=== PATIENT | female | born 1975 | race Caucasian/White ===

== ENCOUNTER 2025-03-12 19:58 | Emergency (ER) | payer OTHER, SELFPAY ==
--- OUTSIDE RECORDS SUMMARY | 2025-03-11 19:22 | XMS_ITS | Continuity of Care Document ---
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 Role Phone NO FAMILY, PHYSICIAN Primary Care Provider Elisabethva Niki Hathaway APRN Attending Provider Care Teams Visit Care Team Team Status: Inactive Member Role/Relationship Status Dates PHYSICIAN NO FAMILY Primary Care Provider Active Start: March 11, 2025 End: March 11, 2025Carine Garciastenstan ProviderActiveStart: March 11, 2025 End: March 11, 2025 Patient Care Team Team Status: Inactive Member Role/Relationship Status Dates Niki Rasmussen APRN Attending Provider Active Start: March 11, 2025 End: March 11, 2025 Chief Complaint and Reason for Visit Chief Complaint Admit Date frequency to urinate March 11, 2025 4:23pm Reason for Visit Admit Date Acute UTI March 11, 2025 4 :23pm Allergies, Adverse Reactions, Alerts Allergen Type Severity Reaction Last Updated Verified Status No Known Allergies Allergy Unknown March 11, 2025 4:24pmYesActive Social History Smoking Status Status Start Date End Date Date of Observa tion Ex-smoker (finding) March 11, 2025 4:30pm Observation Status Observation Response Date of Response Legal Sex Female (finding) Sex Assigned At BirthFemaleFebruary 1975 Family History Relationship Condition Age at Onset Recorded Date/T frank father Hypertension Unknown Diabetes mellitusUnknown Problems Active Problems Problem Diagnosis/Recorded Date Onset Date Stat us Anxiety March 11, 2025 4:25pm Unknown Ac tive Night sweats March 11, 2025 4:30pm Unknown Ac tive Acute UTI March 11, 2025 4:46pm Unknown Ac tive Medications Medication Status Dose Units Route Directions Qty Days Refills S tart Date Stop Date End Date Reason(s) Instructions Adherence Multivitamin tablet Active 1 TAB PO Daily March 11, 2025 12:00amUnknownBiotin 5 mg iofxysgNtbcfm7NAZWIfdhaDjdhhkiy 2024 12:00amUnknownBlack Cohosh 540 mg mspeijmNvtpxe98HPJIYtxifCabfolhq 2024 12:00amUnknownSertraline 50 mg qrubkvLnighw08DVMMBbiyfOtdaqkkq 2024 12:00amUnknownCholecalciferol (Vitamin D3) 10 mcg (400 unit) capsuleActive 10MCGPODailyDecember 2024 12:00amUnknownPhentermine 37.5 mg tabletActive 37.5MGPODailyDecember 2024 12:00amUnknownPhenazopyridine (Pyridium) 200 mg phguzyQaibvx792RXSKKacxc times daily as needed for rxeu054Phvnetpi 2nd, 2025 12:00amUnknownNitrofurantoin Monohyd/M-Cryst (Macrobid) 100 mg hxideqdAdraik871 MGPOEvery 12 jtfme8569Nguirgra 2nd, 2025 12:00ammust administer with a meal/food Unknown Procedures Procedure Date Performed Status Urine Culture March 11, 2025 active Relevant Diagnostic Tests and/or Laboratory Data Laboratory Results Test Collection Date/Time Result Date/Time Result Interpretation Reference Range Result Comment Performing Site Urine Color March 11, 2025 4:39pm March 11, 2025 4 :40pm yellow Urine AppearanceDe2024 4:39pmDecemb2024 4:40pmclearUrine Glucose (UA)March 11, 2025 4:39pmDecember 2024 4:40pmnegativeUrine BilirubinDece2024 4:39pmDecemb2024 4:40pmnegativeUrine Ketones March 11, 2025 4:39pmDecemb2024 4:40pmnegativeUrine Specific [place] March 11, 2025 4:39pmDecemb2024 4:40pm1.010Urine Occult Blood March 11, 2025 4:39pmDecemb2024 4:40pmmoderateUrine pHDece2024 4:39pmDecember 2024 4:40pm6.0Urine ProteinDeceer 2024 4:39pm March 11, 2025 4:40pmnegativeUrine UrobilinogenDece2024 4:39pm March 11, 2025 4:40pm0.2EU/dLUrine NitriteDece2024 4:39pmDecember 2024 4:40pmPositiveUrine Leukocyte EsteraseDece2024 4:39pm March 11, 2025 4:40pmsmall Vital Signs Vital Reading Result Reference Range Collection Date/Time Height 66 [in_i] March 11, 2025 4:17qhScgbcr33.29 kgMarch 11, 2025 4:25pmBody Temperature 97.9 [degF]97.6-99.0March 11, 2025 4:25pmHeart Rate84 /kqi74-914WcbkjvwmMarch 11, 2025 4:25pmRespiratory rate16 /uzx20-67WjgbzttdMarch 11, 2025 4:25pmOxygen saturation by Pulse wnvrebjd93 %95-100March 11, 2025 4:25pmBP Yyhngbtv966 mm[Hg]100-140March 11, 2025 4:25pmBP Xfaarttqm01 mm[Hg]60-100Dece2024 4:25pmBMI (Body Mass Index)26.8 kg/d6EdcnviwwMarch 11, 2025 4:25pm Advance Directives Advance Directive Response Recorded Date/ Time Advance Directives No July 01 023 11:47am Insurance Providers Guarantor Jana Scruggs Address [address] [place] [id number] Info.Home Phone: Coverage Status Update:2025 Payer Group Member ID Coverage Type Subscriber Relationship to Subscriber Effective Date Expiration Date MM [id number] L Shafer Id: [id number] [address] [place] [id number] Home Phone: Email: [email or web address] Encounters Encounter Location(s) Arrival/Admit Date Discharge/Departure Date Discharge/Departure Disposition Provider(s) Departed Physician/ Provider Office Visit -[facility] Cm March 11, 2025 4:23pm March 11, 2025 4:44pm Discharged to home care or self care (routine discharge) Albert Sol APRN Departed Referred -Lab [facility] March 11, 2025 4:30pm March 11, 2025 4:31pm Discharged to home care or self care (routine discharge) Albert Sol APRN Recent Diagnosis Onset Date Admit Date Acute UTI Unknown March 11 4:23pm Assessments Diagnosis Onset Date Resolution Status Admit Date Acute UTI acuteSc2024 4:23pm Plan of Treatment Author [facility] 4:46pm UA with small leukocytes, mod blood, + nitrite. Will treat with macrobid. As needed Pyridium Rx sent for symptomatic treatment. Push fluids. We will culture urine and notify of results in 2 to 4 days. Advised to follow-up with PCP if symptoms or not gradually improving over the next 3 to 4 days. Patient verbalized understanding of treatment plan. Future Tests Future scheduled test information is unavailable Pending Tests Test Name Ordered Date Scheduled Date Urine Culture March 11, 2025 4:30pm Future Visits Future appointment information is unavailable Future Procedures Procedure Name Ordered Date Scheduled Date Urine Culture March 11, 2025 4:32pm [facility] er 2024 4:30pm Future Medications Future medication information is unavailable Patient Instructions Patient instructions are unavailable
[2025-03-12 20:07] VITALS: BP 122/68; PULSE 91; TEMP 36.7; O2SAT 99; BMI 26.6
--- NOTE | 2025-03-12 20:49 | CT_ITS ---
The [address] [address] Patient Name: ACOSTA BRUNO MRN: [id number] date: 1975 Sex: F Assigned Patient Location: ER Current Patient Location: ED.MAIN Accession/Order Number: [id number] Exam Date: 03/12/2025 21:17 Report Date: 03/12/2025 22:50 At the request of: YO KUMAR MD Procedure: CT abdomen pelvis wo con CT ABDOMEN AND PELVIS WITHOUT INTRAVENOUS CONTRAST: CLINICAL HISTORY: Left flank pain, UTI sx COMPARISON: None TECHNIQUE: Spiral images were obtained through the abdomen and pelvis without intravenous contrast. This CT exam was performed using one or more following dose reduction techniques: Automated exposure control, adjustment of the mA and/or kV according to patient size, or use of iterative reconstruction technique. FINDINGS: Lung Bases: [No focal opacity ] Organs:Liver, gallbladder, spleen, adrenals, kidneys, and pancreas are unremarkable.[ GI: Mild to moderate retained stool throughout the colon. No bowel obstruction. Appendix is normal.[ Pelvis:[Uterus unremarkable. No adnexal mass identified. Bladder is mostly decompressed with wall thickening. Question slight haziness of the adjacent perivesical fat..] Peritoneum/Retroperitoneum:Negative free air or free fluid. No bulky adenopathy. Aorta normal in caliber. Tiny fat-containing umbilical hernia.[ Abd wall/Bones:No suspicious osseous lesion.[ CT/CT abdomen pelvis wo con IMPRESSION: Bladder wall thickening surrounding haziness may represent under distention, correlate with urinalysis findings. Otherwise negative for nephrolithiasis or obstructive uropathy. Minor colonic diverticulosis. Impression dictated by: Levar Freeman M.D. 03/12/2025 10:50 PM Dictation Location: [place] [id number] Electronically authenticated by: [id number] Y Date: 03/12/2025 22:50
[2025-03-12] MEDS: 0.9 % SODIUM CHLORIDE 1,000 ML 1000 ML IV (21:06)
[2025-03-12] MEDS: KETOROLAC TROMETHAMINE 30 MG/ML VIAL IVP (21:07)
[2025-03-12 21:12] LABS: Hematocrit 42.6 % (36.0-48.0); Hemoglobin 14.3 g/dL (12.0-16.0); Immature Granulocytes Abs Auto 0.02 10^3/uL (0.00-0.03); Immature Granulocytes Pct Auto 0.3 % (0.0-0.5); Lymphocytes Absolute Auto 1.4 10^3/uL (1.2-3.8); Mean Corpuscular HGB Conc 33.6 g/dL (29.9-35.2); Mean Corpuscular Hemoglobin 29.7 pg (26.7-34.0); Mean Corpuscular Volume 88.6 fL (81.0-99.0); Platelet Count 219 10^3/uL (150-450); Red Blood Count 4.81 10^6/uL (4.20-5.40); White Blood Count 7.7 10^3/uL (4.0-11.0)
[2025-03-12 21:13] LABS: Glucose Urine UA NEGATIVE (NEGATIVE)
[2025-03-12 21:19] LABS: Urine Culture Indicated YES-FRMC
--- NOTE | 2025-03-12 21:19 | ED.FEMALEGU1 ---
HPI - Female Genitourinary General Chief complaint: Urogenital-Female Stated complaint: BLADDER INFECTION YESTERDAY/ NOW VOMITING Time Seen by Provider: 03/12/25 20:08 Source: patient Mode of arrival: walk-in History of Present Illness HPI Narrative: This 49-year-old female presents for evaluation of urinary symptoms since Monday. The patient states she woke up yesterday morning with urinary symptoms with mild dysuria. She states she took an Azo and went to work. She only worked part of a day and then went home because she was not feeling well. Since that time she has developed more severe urinary symptoms with frequency and urgency. She has not had any hematuria. She has also developed nausea and had 3 episodes of vomiting throughout the day and left-sided flank pain. She has not had a fever. She states she has vomited 3 times and had diarrhea. She was seen at urgent care and prescribed Macrobid and Pyridium. Related Data Home Medications ?Medication ?Instructions ?Recorded ?Confirmed phenazopyridine 100 mg tablet 100 mg PO TID 03/12/25 03/12/25 (Pyridium) phentermine 37.5 mg tablet mg 03/12/25 sertraline 100 mg tablet (Zoloft) 100 mg PO DAILY 03/12/25 03/12/25 Allergies Allergy/AdvReac Type Severity Reaction Status Date / Time No Known Drug Allergies Allergy Verified 03/12/25 20:16 Review of Systems ROS Status of ROS 10 or more systems reviewed and unremarkable except as noted in history and below PFSH PFSH Social History Little interest or pleasure in doing things: not at all Feeling down, depressed, or hopeless: not at all Exam Narrative Exam Narrative: Vital signs and Nursing Notes reviewed: Patient is afebrile with a normal pulse, normal respiratory rate, she is not hypoxic with pulse ox of 99% on room air General: Awake, alert, oriented, no acute distress, lying comfortably on the stretcher HEENT: Normocephalic atraumatic, mucous membranes are moist and pink, eyes are clear, normal conjunctiva, vision is grossly intact, posterior pharynx is normal in appearance Neck: Supple, no meningeal signs Chest: Lungs are clear to auscultation with good air entry, there is no wheezing rhonchi or rales appreciated no accessory muscle use, patient is speaking in complete sentences-no chest wall tenderness to palpation CVS: Regular rate and rhythm S1-S2, no murmurs rubs or gallops, pulses are brisk and equal bilaterally ABD: Soft, nondistended, nontender, mild tenderness in the left lower quadrant and over the urinary bladder without rebound guarding rigidity, no reproducible flank tenderness noted, no skin rash in the left flank Extremities: Moving all extremities, no lower extremity tenderness or swelling noted, negative Homans' sign, pulses are brisk and equal bilaterally Skin: Normal in appearance without rash,pallor, petechiae or purpura Neuro: No focal deficits Constitutional Vital Signs, click to edit/add: Last Vital Signs Temp 98.1 F 03/12/25 20:07 Pulse 78 03/12/25 23:26 Resp 16 03/12/25 23:26 BP 138/82 03/12/25 23:26 Pulse Ox 99 03/12/25 23:26 O2 Del Method Room Air 03/12/25 23:26 Course Vital Signs Vital signs: Vital Signs Temperature 98.1 F 03/12/25 20:07 Pulse Rate 91 H 03/12/25 20:07 Respiratory Rate 20 03/12/25 20:07 Blood Pressure 122/68 03/12/25 20:07 Pulse Oximetry 99 03/12/25 20:07 Oxygen Delivery Method Room Air 03/12/25 20:07 Temperature 98.1 F 03/12/25 20:07 Pulse Rate 78 03/12/25 23:26 Respiratory Rate 16 03/12/25 23:26 Blood Pressure 138/82 03/12/25 23:26 Pulse Oximetry 99 03/12/25 23:26 Oxygen Delivery Method Room Air 03/12/25 23:26 MDM - Female Genitourinary MDM Narrative Medical decision making narrative: This 49-year-old female presents for evaluation of urinary tract symptoms that started yesterday-she was seen in urgent care and prescribed Macrobid and Pyridium. Today her symptoms increased to include left flank pain with nausea vomiting and diarrhea earlier in the day. She states she had some chills but has not had a fever. Upon arrival she was not actively vomiting. Her mucous membranes are moist, her abdomen is soft with no flank tenderness. An IV was placed and she was medicated with IV fluids, Zofran and Toradol. She has a normal white count and stable hemoglobin. Electrolytes are normal. Urine is positive for nitrites, leukocyte esterase and 10-20 white blood cells per high-power field. Culture is pending at this time. She was given 1 g of IV Rocephin for the UTI. CT scan of the abdomen pelvis was ordered to rule out obstructive uropathy or pyelonephritis. It does show some mild stranding around the bladder but otherwise no kidney stones or obstructive uropathy was noted. The patient was given a copy of her CT scan and was discharged home with a prescription for Keflex and Zofran. I encouraged her to drink plenty of fluids and follow-up closely with her family physician, return to the emergency department for worsening symptoms, inability to tolerate her medications or any concerns. Medical Records Attestation: I reviewed the patient's medical records. Lab Data Attestation: I reviewed the patient's lab results. Labs: Lab Results 03/12/25 Range/Units 21:04 WBC 7.7 (4.0-11.0) 10^3/uL RBC 4.81 (4.20-5.40) 10^6/uL Hgb 14.3 (12.0-16.0) g/dL Hct 42.6 (36.0-48.0) % MCV 88.6 (81.0-99.0) fL MCH 29.7 (26.7-34.0) pg MCHC 33.6 (29.9-35.2) g/dL RDW 12.4 (11.0-15.0) % Plt Count 219 (150-450) 10^3/uL MPV 10.4 (9.5-13.5) fL Neut % (Auto) 76.4 H (43.0-75.0) % Lymph % (Auto) 17.9 L (20.5-60.0) % [place] % (Auto) 4.4 (1.7-12.0) % Eos % (Auto) 0.4 L (0.9-7.0) % Baso % (Auto) 0.6 (0.2-2.0) % Neut # (Auto) 5.9 (1.4-6.5) 10^3/uL Lymph # (Auto) 1.4 (1.2-3.8) 10^3/uL [place] # (Auto) 0.3 (0.3-0.8) 10^3/uL Eos # (Auto) 0.0 (0.0-0.7) 10^3/uL Baso # (Auto) 0.1 (0.0-0.1) 10^3/uL Abs Immat Gran (auto) 0.02 (0.00-0.03) 10^3/uL Imm/Tot Granulo (auto) 0.3 (0.0-0.5) % Sodium 141 (136-145) mmol/L Potassium 3.8 (3.5-5.1) mmol/L Chloride 104 (98-107) mmol/L Carbon Dioxide 30.7 (21.0-32.0) mmol/L Anion Gap 10.1 BUN 10.0 (7.0-18.0) mg/dL Creatinine 0.75 (0.55-1.02) mg/dL Est GFR ( Amer) >60 (>=60 mL/min/1.73m^2) Est GFR (Non-Af Amer) >60 (>=60 mL/min/1.73m^2) BUN/Creatinine Ratio 13.3 Glucose 100 (74-106) mg/dL Calcium 9.7 (8.5-10.1) mg/dL Total Bilirubin 0.5 (0.2-1.0) mg/dL AST 12 L (15-37) U/L ALT 23 (14-59) U/L Alkaline Phosphatase 75 (46-116) U/L Total Protein 7.8 (6.4-8.2) g/dL Albumin 4.2 (3.4-5.0) g/dL Globulin 3.6 g/dL Albumin/Globulin Ratio 1.2 Urine Color Dk. orange (YELLOW) Urine Clarity Sl cloudy (CLEAR) Urine pH 7.5 (5.0-9.0) Ur Specific [place] 1.015 (1.005-1.025) Urine Protein Negative (NEG/TRACE) mg/dL Urine Glucose (UA) Negative (NEGATIVE) mg/dL Urine Ketones 15 A (NEGATIVE) mg/dL Urine Occult Blood Trace-i (NEGATIVE) Urine Nitrite Positive A (NEGATIVE) Urine Bilirubin Negative (NEGATIVE) Urine Urobilinogen 0.2 (0.2-1.0) EU/dL Ur Leukocyte Esterase Small A (NEGATIVE) Urine RBC 0-2 (0-2) #/HPF Urine WBC 10-20 A (NONE SEEN) #/HPF Ur Squamous Epith Cells Rare (NONE/RARE) #/LPF Urine Crystals None seen (None Seen) #/HPF Urine Bacteria Small A (NONE SEEN) #/HPF Urine Casts None seen (NONE SEEN) #/LPF Urine Mucus Moderate A (NONE SEEN) Ur Culture Indicated? Yes-[facility] [place] Urine HCG, Qual Negative (NEGATIVE) Imaging Data CT scan - abdomen: Radiologist's impression: ITS Impressions Abdomen/Pelvis CT 03/12/25 20:49 IMPRESSION: Bladder wall thickening surrounding haziness may represent under distention, correlate with urinalysis findings. Otherwise negative for nephrolithiasis or obstructive uropathy. Minor colonic diverticulosis. Impression dictated by: Levar Freeman M.D. 03/12/2025 10:50 PM [facility]ation [facility] Electronically authenticated by: [id number] Y Date: 03/12/2025 22:50 Discharge Plan Discharge Chief Complaint: Urogenital-Female Clinical Impression: Urinary tract infection Patient Disposition: Home, Self-Care Time of Disposition Decision: 23:09 Condition: Good Prescriptions / Home Meds: No Action phentermine 37.5 mg tablet sertraline [Zoloft] 100 mg tablet 100 mg PO DAILY phenazopyridine [Pyridium] 100 mg tablet 100 mg PO TID Print Language: Ukrainian Instructions: Urinary Tract Infection in Women (DC) Referrals: SIENNA QUINTANILLA [Primary Care Provider, Family Practice] - 1 week Discharge Date/Time: 03/12/25 23:28
[2025-03-12 21:24] LABS: Crystals Seen? None Seen #/HPF (None Seen)
[2025-03-12 21:25] LABS: Cast Seen? NONE SEEN #/LPF (NONE SEEN)
[2025-03-12 21:28] LABS: Alanine Aminotransferase 23 U/L (14-59); Albumin Globulin Ratio 1.2; Albumin Level 4.2 g/dL (3.4-5.0); Alkaline Phosphatase 75 U/L (46-116); Anion Gap 10.1; Aspartate Amino Transferase 12 U/L (15-37); Blood Urea Nitrogen 10.0 mg/dL (7.0-18.0); Calcium 9.7 mg/dL (8.5-10.1); Carbon Dioxide 30.7 mmol/L (21.0-32.0); Chloride 104 mmol/L (98-107); Estimated GFR (African America >60 (>=60 mL/min/1.73m^2); Estimated GFR (Non-African Ame >60 (>=60 mL/min/1.73m^2); Globulin 3.6 g/dL; Glucose 100 mg/dL (74-106); Potassium 3.8 mmol/L (3.5-5.1); Sodium 141 mmol/L (136-145); Total Protein 7.8 g/dL (6.4-8.2)
[2025-03-12 21:32] LABS: HCG Qualitative Urine* NEGATIVE (NEGATIVE)
--- OUTSIDE RECORDS SUMMARY | 2025-03-12 21:48 | XMS_ITS | Clinical Summary ---
Author Organization [facility] Address [address], [address] [place] [address] Care Team Providers Care Automotive Technician Instructor Name Role Phone Gabi Mosquera PA-C Primary Care Provider [phone] Medications MedicationSigDispense QuantityRefillsLast FilledStart DateEnd DateStatus sertraline (ZOLOFT) 50 MG tablet Take 1.5 tablets by mouth nightlyActive Probiotic Product (PROBIOTIC-10 PO) Take by mouth dailyActive diazePAM (VALIUM) 2 MG tablet Take 1 tablet by mouth every 6 hours as needed for Anxiety. Max Daily Amount: 8 mgActive Active Problems No known active problems Encounters DateTypeDepartmentCare SjynWtsbrwqsvzp32/27/2025Telephone [facility] Mammography [address] [place], [place] [id number] Radiologist, Vinny Ramirez 12/25/2024Results Follow-Up [facility] Obstetrics and Gynecology [address] [place] [address] Dr [place]ON [place] [id number] Roxanna Lui, ANNA - MEGA 12/18/2024 10:08 AM EDT - 12/18/2024 11:59 PM EDTHospital Encounter [facility] [address] [place], [place] [id number] Screening for malignant neoplasm of cervix Discharge Disposition: Home or Self Care12/18/2024 9:00 AM EDTOffice Visit [facility] OBSTETRICS & GYNECOLOGY Part [address] [place] [address] Roxanna Lui, ANNA - MEGA Encounter for annual routine gynecological examination (Primary Dx); Screening mammogram, encounter for; Screening for malignant neoplasm of cervixfrom Last 3 Months Family History Medical HistoryRelationNameCommentsDeep Vein ThrombosisFatherDiabetesFatherHigh CholesterolFatherHypertensionFatherPulmonary EmbolismFatherProstate Cancer Maternal GrandfatherOtherMaternal GrandmotherpacemakerBreast CancerMaternal Great GrandmotherDeep Vein ThrombosisMotherAlzheimer's DiseasePaternal GrandmotherRelationNameStatusCommentsBrotherAliveFatherDeceasedMaternal GrandfatherAliveMaternal GrandmotherAliveMaternal Great GrandmotherDeceased MotherAlivePaternal GrandfatherDeceasedPaternal GrandmotherDeceased Social History Tobacco UseTypesPacks/DayYears UsedDateSmoking Tobacco: FormerCigarettesQuit: 2005Smokeless Tobacco: Never Tobacco Cessation:Counseling Given: Not Answered Alcohol UseStandard Drinks/WeekCommentsNot Currently0 (1 standard drink = 0.6 oz pure alcohol)rarelyOverall Financial Resource Strain (CARDIA)AnswerDate Recorded How hard is it for you to pay for the very basics like food, housing, medical care, and heating?Not hard at all12/13/2023HQ-2AnswerDate RecordedPHQ-9 Total Lerqg757PRAPARE - TransportationAnswerDate RecordedLack of Transportation (Medical)Not on file12/13/2023In the past 12 months, has lack of transportation kept you from meetings, work, or from getting things needed for daily living?No12/13/2023Housing Stability Vital SignAnswerDate RecordedIn the last 12 months, was there a time when you were not able to pay the mortgage or rent on time?No12/18/2024In the past 12 months, how many times have you moved where you were living?t any time in the past 12 months, were you homeless or living in a half-way (including now)?12/18/2024Hunger Vital Sign AnswerDate RecordedWithin the past 12 months, you worried that your food would run out before you got the money to buymore.Never true12/18/2024Within the past 12 months, the food you bought just didn't last and you didn't have money to get more.Never true12/18/2024PRAPARE - TransportationAnswerDate RecordedIn the past 12 months, has lack of transportation kept you from medical appointments or from getting medications?No12/18/2024In the past 12 months, has lack of transportation kept you from meetings, work, or from getting things needed for daily living?No12/18/2024HC UtilitiesAnswerDate RecordedIn the past 12 months has the electric, gas, oil, or water company threatened to shut off services in your home?No12/18/2024Interpersonal Safety Domain Source: IP Abuse Screening AnswerDate RecordedRead-Only, Retired: Physical RdzpnOjuyay42/26/2023Read-Only, Retired: Verbal ZabvtAxdcmj67/26/2023Read-Only, Retired: Emotional abuseDenies 11/02/2022Read-Only, Retired: Financial VvrkeIwiavo94/26/2023Read-Only, Retired: Sexual tasluQzljud69/26/2023CommentsNoSex and Gender InformationValue Date RecordedSex Assigned at BirthNot on fileLegal VyzZoasfi91/17/2021 12:25 PM EDTGender IdentityNot on fileSexual OrientationNot on file Last Filed Vital Signs Vital SignReadingTime TakenCommentsBlood Hrfcbjis665/8209 9:01 AM EDT Vzrlx807511/02/2022 4:41 PM TOMJzsqeogyikl34.4 ??C (97.5 ??F)11/02/2022 4:41 PM EDTRespiratory Zitc098704/20/2021 5:00 PM ESTOxygen Lhuwjserwo111%11/02/2022 4:41 PM EDTInhaled Oxygen Concentration--Beghgc95.8 kg (162 lb 12.8 oz)12/18/2024 9:01 AM FVBQykxoh957.6 cm (5' 6 )12/18/2024 9:01 AM EDTBody Mass Index26.28 12/18/2024 9:01 AM EDT Plan of Treatment DateTypeDepartmentCare Team (Latest Contact Info)Oszubnrddej97/24/2026 8:15 AM EDTOffice Visit [facility] OBST[facility]OLOGY Part of [address] [place] [address] Roxanna Lui, HR ASSISTANT - [address] [place] [address] yearlyHealth MaintenanceDue DateLast DoneCommentsHIV ptjouf8605/11/1992Hepatitis C yavofb0605/11/1995Hepatitis B vaccine (1 of 3 - 19+ 3-dose series)1996 DTaP/Tdap/Td vaccine (2 - Td or Tdap)Colonoscopy2022 FIT/FOBT: Average risk2022Sigmoidoscopy/CT vonjjgtchhvy13/01/2023Flu vaccine (#1)COVID-19 Vaccine ( season)2024 Depression Fknhsk56609/01/2025, 12/18/2024olorectal Cancer Screen 01/27/2026Fecal-DNA (Cologuard): Average risk610/3Breast cancer olynhm41703/10/2024, 01/08/2024, 12/22/2023, Additional history existsPap smear809/01/2025, 12/13/2023, 12/07/2022, Additional history exists Fsufkp69/06/2022, 2Cervical cancer rxtnoc1712/12/2028HPV (without or with Pap)/07/2023, 12/07/2022, 09/21/2021, Additional history existsHepatitis A vaccineAged OutNo longer eligible based on patient's age to complete this topicHib vaccineAged OutNo longer eligible based on patient's age to complete this topicMeningococcal (ACWY) vaccineAged OutNo longer eligible based on patient's age to complete this topicMeningococcal B vaccineAged OutNo longer eligible based on patient's age to complete this topic Pneumococcal 0-49 years VaccineAged OutNo longer eligible based on patient's age to complete this topicPolio vaccineAged OutNo longer eligible based on patient's age to complete this topic Procedures Procedure NamePriorityDate/TimeAssociated DiagnosisCommentsGYN CYTOLOGYRoutine 12/18/2024 12:00 AM EDT MAAME BEATRIZ DIGITAL DIAGNOSTIC FKLGVIVQREasfrly65/07/2025 2:14 PM EST Abnormal mammogram HUMAN PAPILLOMAVIRUS (HPV) DNA PROBE THIN PREP HIGH ZDHEJpzwewe10/04/2024 12:00 AM EDT LIPID QJXDBYsffcrv82/03/2023 11:07 AM EDT from Last 3 Months or Most Recently Relevant to Health Maintenance Results * DIE CAST ENGINEER Cytology (12/18/2024 12:00 AM EDT)ComponentValueRef RangeTest Method Analysis TimePerformed AtPathologist SignatureCytology ReportPath Number: [id number] DIAGNOSIS Imaged ThinPrep Pap - Cervical (1 monolayer slide): Specimen Adequacy: ? Satisfactory for evaluation. ? - Endocervical/transformation zone component present. Descriptive Diagnosis: ? Negative for intraepithelial lesion or malignancy. ?? Cytotech Screener: ??EY Electronically Signed Out Yisel ROSS(ASCP) ey/12/25/2024 Source of Specimen: A: Imaged ThinPrep Pap - Cervical (1 monolayer slide) HPV Reflex?......................HPV if ASCUS Clinical History Endometrial ablation Z12.4 Encounter for screening for malignant neoplasm of cervix Processing Lab: [address] [id number] Interpretation performed at [address] [address] This Pap Test has been evaluated with the assistance of the ThinPrep Pap Test Imaging System. The Pap smear is a screening test primarily for squamous epithelial lesions, which is subject to both false negative and false positive results. Your patient should be reminded to consult you immediately if she experiences any suspicious signs or symptoms, regardless of her Pap smear result. GYNECOLOGIC CYTOLOGY REPORT Patient Name: ACOSTA SCRUGGS [facility] Rec: [id number] [facility] ??[facility] ANATOMIC PATHOLOGY [address] [place] [address]. ??[place], [place] [address] bS[facility] LABSSpecimen (Source)Anatomical Location / LateralityCollection Method / VolumeCollection TimeReceived Time CERVICAL MFIDRGDK25/02/2025 9:04 AM EDT Narrative Authorizing ProviderResult TypeResult StatusSusan Alba Lui APRN - [place] PATHOLOGY/CYTOLOGY ORDERABLESFinal ResultPerforming OrganizationAddress City/State/[place] [address], [facility] [[email or web address]] [phone] [facility] * MAAME BEATRIZ DIGITAL DIAGNOSTIC BILATERAL (06/14/2024 2:14 PM EST)Anatomical RegionLateralityModalityBreastBilateralMammographySpecimen (Source)Anatomical Location / LateralityCollection Method / VolumeCollection TimeReceived Time 06/14/2024 2:25 PM EST Impressions 06/14/2024 2:26 PM EST Stable exam. No mammographic evidence of malignancy. BIRADS: BIRADS - CATEGORY 2 Benign Findings. ??Normal interval follow-up is recommended in 12 months. OVERALL ASSESSMENT - BENIGN A letter of notification will be sent to the patient regarding the results. The [employer] recommends annual mammograms for women 40 years and older. Performing Facility: [place] [id number] Narrative 06/14/2024 2:26 PM EST EXAMINATION: DIAGNOSTIC DIGITAL BILATERAL BREASTS MAMMOGRAM WITH TOMOSYNTHESIS, 06/14/2024 2:14 pm TECHNIQUE: Diagnostic mammography of the bilateral breasts was performed with tomosynthesis. ??2D standard and 3D tomosynthesis combination imaging performed through both breasts. ??Computer aided detection was utilized in the interpretation of this exam. Views: COMPARISON: January 08, 2024 HISTORY: ORDERING SYSTEM PROVIDED HISTORY: Abnormal mammogram TECHNOLOGIST PROVIDED HISTORY: Is the patient ?->No FINDINGS: The breasts are heterogeneously dense, which may obscure small masses. ??No significant interval change in asymmetry outer right breast on the right CC view. ??Left breast asymmetry not well visualized on today's study. ??No suspicious mammographic changes have occurred. ??No suspicious calcification. Authorizing ProviderResult TypeResult StatusSusareji Lui HR ASSISTANT - [facility] MAM[facility] ORDERABLESFinal Result * Human papillomavirus (HPV) DNA probe thin prep high risk (12/13/2023 12:00 AM EDT)ComponentValueRef RangeTest MethodAnalysis TimePerformed AtPathologist SignatureSpecimen DescriptionCERVICAL VKXLXHGF49/04/2024 12:00 AM EDTMERCY LABORATORIESHPV Sample.THIN PREP12/13/2023 12:00 AM EDShuttersong LABORATORIESHPV, Genotype 16Not DetectedNot Vsclfepa26/04/2024 12:00 AM EDShuttersong LABORATORIES HPV, Genotype 18Not DetectedNot Ybhxwhsr65/04/2024 12:00 AM EDTMEmpressr LABORATORIESHPV, High Risk OtherNot DetectedNot Dzazfimt73/04/2024 12:00 AM EDTMMertadoY LABORATORIESHPV, Lqqlacucclhnav94/04/2024 12:00 AM EDTMEmpressr LABORATORIESComment: This test amplifies and detects DNA of 14 high-risk HPV types associated with cervical cancer and its precursor lesions (HPV types 16,18, 31, 33, 35, 39, 45, 51, 52, 56, 58, 59, 66, and 68). ? Sensitivity may be affected by specimen collection methods, stage of infection, and the presence of interfering substances. Results should be interpreted in conjunction with other available laboratory and clinical data. A negative high-risk HPV result does not exclude the possibility of future cytologic HSIL or underlying CIN2-3 or cancer. ? This test is intended for medical purposes only and is not valid for the evaluation of suspected sexual abuse or for other forensic purposes. Specimen (Source)Anatomical Location / LateralityCollection Method / Volume Collection TimeReceived TimeCERVICAL RBUJKFGU08/04/2024 Narrative Authorizing ProviderResult TypeResult StatusSueileen Lui HR ASSISTANT - CNM HEMATOLOGY ORDERABLESFinal ResultPerforming OrganizationAddressCity/State/ZIP CodePhone Number [facility] [address] [place] [address], [facility] [[email or web address]] [phone] [facility] [address] [place] [address], [facility] [[email or web address]] [phone] * (ABNORMAL) Lipid Panel (02/10/2023 11:07 AM EDT)ComponentValueRef RangeTest MethodAnalysis TimePerformed AtPathologist OmvfqemkcYhpuzrewiga794(H)<200 mg/dL02/10/2023 11:07 AM EDTMERCY LABORATORIESComment: Cholesterol Guidelines: <200 Desirable 200-240 ??Borderline >240 Undesirable HDL52>40 mg/dL02/10/2023 11:07 AM EDTMERCY LABORATORIESComment: HDL Guidelines: <40 Undesirable 40-59 ?Borderline >59 Desirable LDL Ampypwbmmzl482(H)0 - 130 mg/dL02/10/2023 11:07 AM EDTMERCY LABORATORIES Comment: LDL Guidelines: <100 Desirable 100-129 ?? Near to/above Desirable 130-159 ?? Borderline >159 Undesirable Direct (measured) LDL and calculated LDL are not interchangeable tests. Chol/HDL Ratio4.1< 11:07 AM EDTMERCY LABORATORIESComment: Llawasakcezbt319<150 mg/dL02/10/2023 11:07 AM EDTMERCY LABORATORIESComment: Triglyceride Guidelines: <150 Desirable 150-199 ??Borderline 200-499 ??High >499 Very high Based on AHA Guidelines for fasting triglyceride, January 2012. Specimen (Source)Anatomical Location / LateralityCollection Method / Volume Collection TimeReceived Time02/10/2023 11:07 AM EDT104/12/2022 11:08 AM EDT Narrative Authorizing ProviderResult TypeResult StatusMary Vasquez HR ASSISTANT - [facility] CHEMISTRY ORDERABLESFinal ResultPerforming OrganizationAddressCity/State/ZIP CodePhone Number [facility] [address] [place] [address], [facility] [[email or web address]] [phone] [facility] [address] [place] [address], [facility] [[email or web address]] [phone] from Last 3 Months or Most Recently Relevant to Health Maintenance Insurance Advance Directives * Full Code (Latest Code Status on File) Date ActivatedDate MpuroeujpofMbgpxpbf96/11/2022 2:31 PM02/18/2022 7:26 PM Care Teams Team MemberRelationshipSpecialtyStart DateEnd Date Gabi Mosquera PARushC [address] [facility] [address] [place] [address] PCP - GeneralPhysician Assistant06/14/24
--- OUTSIDE RECORDS SUMMARY | 2025-03-12 21:48 | XMS_ITS | Encounter Summary ---
Author Organization [facility] Address [address] [place] [address] Care Team Providers Care Casting Room Helper Name Role Phone Dieudonne Foster MD Primary Care Provider [phone] Gabi Mosquera Unavailable [phone] Encounter Details DateTypeDepartmentCare Team (Latest Contact Info)Jsrpknykobd39/19/2025Abstract [facility] [place] [facility] [address] [place] [address] [place] [address] Dieudonne Foster MD [address] [facility] [address] [place], [place] [phone] Social History Tobacco UseTypesPacks/DayYears UsedDateSmoking Tobacco: FormerCigarettes Smokeless Tobacco: NeverAlcohol UseStandard Drinks/WeekCommentsYes0 (1 standard drink = 0.6 oz pure alcohol)1-2 drinks of alcohol. caffeine intake: 2-3 cups per day.B1300 Health LiteracyAnswerDate RecordedHow often do you need to have someone help you when you read instructions, pamphlets, or other written material from your doctor or pharmacy?Never12/21/2023Social Connection and Isolation PanelAnswerDate RecordedIn a typical week, how many times do you talk on the phone with family, friends, or neighbors?Three times a week12/21/2023How often do you get together with friends or relatives?Twice a week12/21/2023How often do you attend samaritan or restoration services?Patient efmpytiq57/12/2024Do you belong to any clubs or organizations such as samaritan groups, unions, fraternal or athletic groups, or school groups?Patient rldunosf62/12/2024How often do you attend meetings of the clubs or organizations you belong to?Patient zfrivkyh17/12/2024re you , , , , never , or living with a partner?Pooapuam64/12/2024UDIT-CAnswerDate RecordedQ1: How often do you have a drink containing alcohol?Monthly or less12/21/2023Q2: How many drinks containing alcohol do you have on a typical day when you are drinking?3 or Q3: How often do you have six or more drinks on one occasion?Never12/21/2023Overall Financial Resource Strain (CARDIA)AnswerDate RecordedHow hard is it for you to pay for the very basics like food, housing, medical care, and heating?Not hard at all12/21/2023HQ-2AnswerDate Recorded Patient Health Questionnaire-2 Ithtn60604/23/2024[facility] of Occupational Health - Occupational Stress QuestionnaireAnswerDate RecordedDo you feel stress - tense, restless, nervous, or anxious, or unable to sleep at night because your mind is troubled all the time - these days?Not at all12/21/2023Exercise Vital SignAnswerDate RecordedOn average, how many days per week do you engage in moderate to strenuous exercise (like a brisk walk)?3 days12/21/2023On average, how many minutes do you engage in exercise at this level?30 min12/21/2023Hunger Vital SignAnswerDate RecordedWithin the past 12 months, you worried that your food would run out before you got the money to buymore.Never true12/21/2023 Within the past 12 months, the food you bought just didn't last and you didn't have money to get more.Never true12/21/2023RAPARE - TransportationAnswerDate RecordedIn the past 12 months, has lack of transportation kept you from medical appointments or from getting medications?No12/21/2023In the past 12 months, has lack of transportation kept you from meetings, work, or from getting things needed for daily living?No12/21/2023Housing Stability Vital SignAnswerDate RecordedIn the last 12 months, was there a time when you were not able to pay the mortgage or rent on time?No12/21/2023In the past 12 months, how many times have you moved where you were living?t any time in the past 12 months, were you homeless or living in a chcf (including now)?No12/21/2023 CommentsUnknownSex and Gender InformationValueDate RecordedSex Assigned at BirthNot on fileLegal BipUqroph41/15/2023 6:49 PM EDTGender IdentityNot on fileSexual OrientationNot on filedocumented as of this encounter Plan of Treatment DateTypeDepartmentCare Team (Latest Contact Info)Koxzzzzbrxd06/15/2026 8:30 AM EDTOffice Visit [facility] [place] [facility] [address] [facility] [address] [place] [address] Gabi Mosquera PA [address] [facility] [address] [place] [address] documented as of this encounter Visit Diagnoses Not on filedocumented in this encounter Care Teams Team MemberRelationshipSpecialtyStart DateEnd Date Dieudonne Foster MD [address] [facility] [address] [place] [address] PCP - GeneralInternal Cztcpcye41/4/24 Gabi Mosquera PA [address] [place] [address] [place] [address] PCP - Medical [place] [employer]09/09/2511documented as of this encounter
--- OUTSIDE RECORDS SUMMARY | 2025-03-12 21:48 | XMS_ITS | Clinical Summary ---
Author Organization [facility] Address [address] [place] [address] Care Team Providers Care Inpatient Care Manager Rn Name Role Phone Dieudonne Foster MD Primary Care Provider [phone] Gabi Mosquera Unavailable [phone] Allergies No known active allergies Medications MedicationSigDispense QuantityRefillsLast FilledStart DateEnd DateStatus diazePAM (Valium) 2 MG tablet Indications: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Take 1 tablet (2 mg) by mouth Daily as needed for anxiety 30 tablet 4Active sertraline (Zoloft) 50 MG tablet Indications:AnxietyTAKE 1.5 TABLET BY MOUTH DAILY AT THE SAME TIME EACH DAY 135 tablet 5Active phentermine (Adipex-P) 37.5 MG tablet Indications:Mixed hyperlipidemia,Overweight (BMI 25.0-29.9)Take 1 tablet (37.5 mg) by mouth in the morning. 30 tablet 5Active cholecalciferol (Vitamin D-3) 25 MCG (1000 UT) capsule Take 1,000 Units by mouth DailyActive Multiple Vitamins-Minerals (MULTIVITAMIN WOMENS 50+ ADV PO) Take 1 tablet by mouth DailyActive BIOTIN PO Take 1 tablet by mouth DailyActive ascorbic acid (Vitamin C) 500 MG tablet Take 500 mg by mouth DailyActive Active Problems ProblemNoted DateDiagnosed DateMixed rwnxpkwrtcljdi66/13/2024Night sweats 12/22/2023Overweight (BMI 25.0-29.9)8235Afmajrg03/18/2023izziness due to old head yoqenl8308/30/2019 Resolved Problems ProblemNoted DateDiagnosed DateResolved DateClostridioides difficile diarrhea / Overview (12/22/2023): Problem added secondary to positive C-Diff lab result. Disorder of the autonomic nervous system, ujwwtjeqcjs98/18/202311/11/2023 Encounters DateTypeDepartmentCare GyewAiuyqvwujjg94/19/2025bstract [facility] [address] [facility] [address] [place] [address] Dieudonne Foster MD 02/26/2025bstract [facility] [address] [facility] [address] [place] [address] Dieudonne Foster MD 02/25/2025Results Follow-Up [facility] [address] [facility] [address] [place] [address] Gabi Mosquera PA Lipid panel02/21/2025 10:00 AM ESTOffice Visit [facility] [address] [facility] [address] [place] [address] Gabi Mosquera PA Wellness examination (Primary Dx); Overweight (BMI 25.0-29.9); Anxiety; Mixed hyperlipidemia; 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; Night gsnvyc7804/23/2024amboo flowsheet [facility] [address] [facility] [address] [place] [address] Gabi Mosquera PA 02/21/20257593Zhxubm40/25/2025Refill [facility] [address] [facility] [address] [place] [address] Gabi Mosquera PA Mixed hyperlipidemia ; Overweight (BMI 25.0-29.9)12/29/2024Refill [facility] [address] [facility] [address] [place] [address] Gabi Mosquera PA Xwzklou51/10/2025Clinisync Result Encounter [facility] External Department Unsolicited Provider, Generic External Data from Last 3 Months Immunizations ImmunizationAdministration DatesNext Theo bmwrxkvna-Z8N8-02, preservative-free02/06/2009Tdap06/07/2011 Family History Medical HistoryRelationNameCommentsDiabetesFatherDadHyperlipidemiaFatherDad HypertensionFatherDadPulmonary embolismFatherDadDiverticulosisMotherRelationName StatusCommentsFatherDadDeceasedMotherAlive Social History Tobacco UseTypesPacks/DayYears UsedDateSmoking Tobacco: FormerCigarettes Smokeless Tobacco: Never Tobacco Cessation:Counseling Given: Not Answered Alcohol UseStandard Drinks/WeekCommentsYes0 (1 standard drink = 0.6 oz pure alcohol)1-2 drinks of alcohol. caffeine intake: 2-3 cups per day.B1300 Health LiteracyAnswerDate RecordedHow often do you need to have someone help you when you read instructions, pamphlets, or other written material from your doctor or pharmacy?Never12/21/2023Social Connection and Isolation PanelAnswerDate Recorded In a typical week, how many times do you talk on the phone with family, friends, or neighbors?Three times a week12/21/2023How often do you get together with friends or relatives?Twice a week12/21/2023How often do you attend yazdanism or yarsani services?Patient lpfokfpa26/12/2024o you belong to any clubs or organizations such as yazdanism groups, unions, fraternal or athletic groups, or school groups?Patient axaahhlc66/12/2024How often do you attend meetings of the clubs or organizations you belong to?Patient rtupromu60/12/2024re you , , , , never , or living with a partner? 12/21/2023UDIT-CAnswerDate RecordedQ1: How often do you have a [...] housing, medical care, and heating?Not hard at all 12/21/2023HQ-2AnswerDate RecordedPatient Health Questionnaire-2 Score0 02/21/2025[facility] [place] [facility] Occup[facility] - Occupational Stress QuestionnaireAnswerDate RecordedDo you feel stress - tense, restless, nervous, or anxious, or unable to sleep at night because yourmind is troubled all the time - these days?Not at all12/21/2023Exercise Vital SignAnswerDate RecordedOn average, how many days per week do you engage in moderate to strenuous exercise (like a brisk walk)?3 days12/21/2023On average, how many minutes do you engage in exercise at this level?30 min12/21/2023Hunger Vital SignAnswerDate Recorded Within the past 12 months, you worried that your food would run out before you got the money to buymore.Never true12/21/2023Within the past 12 months, the food you bought just didn't last and you didn't have money to get more.Never true 12/21/2023RAPARE - TransportationAnswerDate RecordedIn the past 12 months, has lack of transportation kept you from medical appointments or from getting medications?No12/21/2023In the past 12 months, has lack of transportation kept you from meetings, work, or from getting things needed for daily living?No 12/21/2023Housing Stability Vital SignAnswerDate RecordedIn the last 12 months, was there a time when you were not able to pay the mortgage or rent on time?No 12/21/2023In the past 12 months, how many times have you moved where you were living?t any time in the past 12 months, were you homeless or living in a mcc (including now)?No12/21/2023CommentsUnknownSex and Gender InformationValueDate RecordedSex Assigned at BirthNot on fileLegal SexFemale 06/22/2022 6:49 PM EDTGender IdentityNot on fileSexual OrientationNot on file Last Filed Vital Signs Vital SignReadingTime TakenCommentsBlood Axmhjlbi411/8211 10:02 AM EST Svlzy7642 10:02 AM ESTTemperature--Respiratory Ljrh540810/09/2024 4:39 PM EDTOxygen Uikpwuxbyf40%02/21/2025 10:02 AM ESTInhaled Oxygen Concentration-- Oezdnx39.8 kg (162 lb 9.6 oz)02/21/2025 10:02 AM SAUKqhuzg023.1 cm (5' 5 ) 02/21/2025 10:02 AM ESTBody Mass Index27.0602/21/2025 10:02 AM EST Plan of Treatment DateTypeDepartmentCare Team (Latest Contact Info)Atwedzmgryk71/15/2026 8:30 AM EDTOffice Visit [facility] [address] [facility] [address] [place] [address] Gabi Mosquera PA [address] [facility] [address] [place] [address] Health MaintenanceDue DateLast DoneCommentsCT Wvhnhdmhpceb01/01/1978FIT 1977FOBT1977 3278Coghgxgtylzso50/01/1978COVID-19 Vaccine ( season)2024Influenza Vaccine (#1)12/09/20248871Wrikpmrjp83/07/717156/10/2024, 06/14/2024, 01/08/2024, Additional history existsFIT-DNA/3Pap Smear809/01/2025, 12/18/2024, 12/13/2023, Additional history exists Cervical Cancer Srixikssg04/04/2029HPV/Lzufnj13/07/2023, 12/13/2023, 12/07/2022, Additional history gtcjcsIwyszgpfqro20Colorectal Cancer Mogwfcehh12/13/2030Pneumococcal Vaccine: Pediatrics (0 to 5 Years) and At-Risk Patients (6 to 64 Years)Aged OutNo longer eligible based on patient's age to complete this topic Procedures Procedure NamePriorityDate/TimeAssociated DiagnosisCommentsLIPID PANELRoutine 02/21/2025 10:20 AM EST Wellness examination Mixed hyperlipidemia MHPT YZIZQUMFWolwfzg18/10/2025 12:00 AM EDT LAB COLOGUARD?? COLON CANCER MHVRFLHmgoska72/20/2023 2:20 PM EDT Screening for malignant neoplasm of colon from Last 3 Months or Most Recently Relevant to Health Maintenance Results * (ABNORMAL) Lipid panel (02/21/2025 10:20 AM EST)ComponentValueRef RangeTest MethodAnalysis TimePerformed AtPathologist SignatureCHOLESTEROL, MWLJK103(H) <200 mg/dLQUESTHDL HQYBKBYTWOJ73> OR = 50 mg/sUTABUGSZFRRVJGZOGKK78<150 mg/dL QUESTLDL NITLVBPKRDN087(H)mg/dL (calc)QUESTComment: Reference range: <100 Desirable range <100 mg/dL for primary prevention; <70 mg/dL for patients with CHD or diabetic patients with > or = 2 CHD risk factors. LDL-C is now calculated using the Aj-Charles calculation, which is a validated novel method providing better accuracy than the Friedewald equation in the estimation of LDL-C. Aj SS et al. MAXWELL. 2013;310(19): 0303-9787 (http://education.Spor Chargers.SolarWinds/faq/UZW723) CHOL/HDLC RATIO3.3<5.0 (calc)QUESTNON HDL IPPENZGXCYT410(H)<130 mg/dL (calc) QUESTComment: For patients with diabetes plus 1 major ASCVD risk factor, treating to a non-HDL-C goal of <100 mg/dL (LDL-C of <70 mg/dL) is considered a therapeutic option. Specimen (Source)Anatomical Location / LateralityCollection Method / Volume Collection TimeReceived TimeBloodVenous blood specimen / Zjkooaf3102/21/2025 10:20 AM EST02/21/2025 10:21 AM EST Narrative [facility]ST - 02/22/2025 7:12 AM EST FASTING:YES FASTING: YES Resulting Agency Comment Performing Organization Information ?Site ID: [id number] ?Name: [facility] ?Address: [address] [place] [address], [address] [place] [id number] ?Director: Puneet Castillo MD Authorizing ProviderResult TypeResult StatusGabi Mosquera [facility] BLOOD ORDERABLESFinal ResultPerforming OrganizationAddressCity/State/ZIP CodePhone Number QUEST * MHPT CYTOLOGY (12/18/2024 12:00 AM EDT)ComponentValueRef RangeTest Method Analysis TimePerformed AtPathologist SignatureMHPT CYTOLOGY(NOTE) Path Number: [id number] DIAGNOSIS Imaged ThinPrep Pap - Cervical (1 monolayer slide): Specimen Adequacy: ?Satisfactory for evaluation. ?- Endocervical/transformation zone component present. Descriptive Diagnosis: ?Negative for intraepithelial lesion or malignancy. Cytotech Screener: ??EY Electronically Signed Out Yisel ROSS(ASCP) ey/12/25/2024 Source of Specimen: A: Imaged ThinPrep Pap - Cervical (1 monolayer slide) HPV Reflex?......................HPV if ASCUS Clinical History Endometrial ablation Z12.4 Encounter for screening for malignant neoplasm of cervix Processing Lab: [address] [id number] Interpretation performed at [address] [phone] This Pap Test has been evaluated with [...] result. GYNECOLOGIC CYTOLOGY REPORT Patient Name: ACOSTA BRUNOKeisha [facility] Rec: [id number] [facility] ??[facility] ANATOMIC PATHOLOGY [address] [place] [address]. ??[place], [place] [address] MHPTSpecimen (Source)Anatomical Location / Laterality Collection Method / VolumeCollection TimeReceived Time 9:04 AM EDT Narrative [facility] - 12/25/2024 7:39 AM EDT Original Ordering Provider: CALLIE SCHRADER Authorizing ProviderResult TypeResult StatusGeneric External Data Provider CLINISYNCFinal ResultPerforming OrganizationAddressCity/State/ZIP CodePhone Number [facility] MHPT * Cologuard?? colon cancer screening (01/27/2023 2:20 PM EDT)ComponentValueRef RangeTest MethodAnalysis TimePerformed AtPathologist SignatureNONINV COLON CA DNA+OCC BLD SCRN STL-MCGHyrlwcxnSvipoegb38/27/2023 3:04 AM EDTEXqunb (CLIA #:[id number])Comment: NEGATIVE TEST RESULT. A negative Cologuard result indicates a low likelihood that a colorectal cancer (CRC) or advanced adenoma (adenomatous polyps with more advanced pre-malignant features) ??is present. The chance that a person with a negative Cologuard test has a colorectal cancer is less than 1in 1500 (negative predictive value >99.9%) or has an advanced adenoma is less than 5.3% (negative predictive value 94.7%). These data are based on a prospective cross-sectional study of 10,000individuals at average risk for colorectal cancer who were screened with both Cologuard and colonoscopy. (Jyoti Lui. et al, N Engl J Med 2014;370(14):9472-7000) The normal value (reference range) for this assay is negative. COLOGUARD RE-SCREENING RECOMMENDATION: Periodic colorectal cancer screening is an important part ofpreventive healthcare for asymptomatic individuals at average risk for colorectal cancer. ??Following a negative Cologuard result, the [employer] Cancer Society and U.S. Multi-Society Task Force screening guidelines recommend a Cologuard re-screening interval of 3 years. References: [employer] Cancer Society Guideline for Colorectal Cancer Screening: https://www.cancer.or g/cancer/dfyem-qvlzaz-uiqdrx/wmbtxfjia-sppbymrhv-nyuquhb/acs-recommendations.htm shalom; Avery CARREON, Rebecca MAYA, Wilda FALCON, Colorectal Cancer Screening: Recommendations for Physicians and Patients from the U.S. Multi-Society Task Force on Colorectal Cancer Screening , Am J Gastroenterology 2017; 112:7206-4879. TEST DESCRIPTION: Composite algorithmic analysis of stool DNA-biomarkers with hemoglobin immunoassay. ?? Quantitative values of individual biomarkers are not reportable and are not associated with individual biomarker result reference ranges. Cologuard is intended for colorectal cancer screening ofadults of either sex, 45 years or older, who are at average-risk for colorectal cancer (CRC). Cologuard has been approved for use by the U.S. FDA. The performance of Cologuard was established in a cross sectional study of average-risk adults aged 50-84. Cologuard performance in patients ages 45 to 49 years was estimated by sub-group analysis of near-age groups. Colonoscopies performed for a positive result may find as the most clinically significant lesion: colorectal cancer [4.0%], advanced adenoma (including sessile serrated polyps greater than or equal to 1cm diameter) [20%] or non- advanced adenoma [31%]; or no colorectal neoplasia [45%]. These estimates are derived from a prospective cross-sectional screening study of 10,000 individuals at average risk for colorectal cancer who were screened with both Cologuard and colonoscopy. (Jyoti Fong al, N Engl J Med 2014;370(14):2260-8822.) Cologuard may produce a false negative or false positive result (no colorectal cancer or precancerous polyp present at colonoscopy follow up). A negative Cologuard test result does not guarantee the absence of CRC or advanced adenoma (pre-cancer). The current Cologuard screening interval is every 3 years. ([employer] Cancer Society and U.S. Multi-Society Task Force). Cologuard performance data in a 10,000 patient pivotal study using colonoscopy as the reference method can be accessed at the following location: www.UpMo.SolarWinds/results. Additional description of the Cologuard test process, warnings and precautions can be found at www.The Nature ConservancyogInformatics In Contextrd.com. Specimen (Source)Anatomical Location / LateralityCollection Method / Volume Collection TimeReceived TimeStool specimen (specimen)01/27/2023 2:20 PM EDT 01/30/2023 12:46 AM EDT Narrative Authorizing ProviderResult TypeResult StatusSanallely Musa [facility] ORDERABLESFinal ResultPerforming OrganizationAddressCity/State/ZIP CodePhone Number [facility] (CLIA #:[id number]) [place] [address], [place] [phone] from Last 3 Months or Most Recently Relevant to Health Maintenance Insurance Care Teams Team MemberRelationshipSpecialtyStart DateEnd Date Dieudonne Foster MD [address] [facility] [address] [place] [address] PCP - GeneralInternal Ovhaytiy36/4/24 Gabi Mosquera PA [address] [facility] [address] [place] [address] PCP - Medical [place] Commercial09/09/2511
--- OUTSIDE RECORDS SUMMARY | 2025-03-12 21:48 | XMS_ITS | Clinical Summary ---
Author Organization [facility] Address [address] [place] [address] Care Team Providers Care Trestle Mainternance Laborer Name Role Phone Minal Torres MD Primary Care Provider [phone] Hussein Atwood MD Unavailable Allergies No known active allergies Medications MedicationSigDispense QuantityRefillsLast FilledStart DateEnd DateStatus sertraline (ZOLOFT) 50 mg tablet Take 50 mg by mouth once daily.Active ALPRAZolam (XANAX) 0.5 mg tablet Take 0.25 mg by mouth at bedtime as needed.Active Lactobacillus acidophilus (PROBIOTIC ORAL) Take by mouth once daily.Active vancomycin (VANCOCIN) 125 mg capsule Take 125 mg by mouth four times daily.Active peg 3350-Electrolytes (GOLYTELY) 236-22.74-6.74 -5.86 gram suspension Refer to printed patient instructions that will be mailed to you. 1 Bottle 05/30/2019Active Social History Tobacco UseTypesPacks/DayYears UsedDateSmoking Tobacco: Never AssessedArea Deprivation IndexAnswerDate RecordedNational Score (1-100), lower number is lower riskNot on file03/19/2020State Score (1-10), lower number is lower riskNot on file03/19/2020Data from: https://www.neighborhoodatlas.medicine.[facility].edu/. Last address used for calculationNot on file03/19/2020CommentsUnknownSex and Gender InformationValueDate RecordedSex Assigned at ChyhoMhurqp28/03/2021 9:24 AM ESTLegal JeyQyeimf30/07/2019 5:44 PM ESTGender RqehaseuFkcirr79/03/2021 9:24 AM ESTSexual KtdkjpvgtlvWeboszjx53/03/2021 9:24 AM EST Last Filed Vital Signs Vital SignReadingTime TakenCommentsBlood Nhjlokva051/78005/30/2019 1:53 PM EST Hezje840405/30/2019 1:53 PM ESTTemperature--Respiratory Rate--Oxygen Saturation 100%05/30/2019 1:53 PM ESTInhaled Oxygen Concentration--Fnvgfs28 kg (141 lb) 05/30/2019 1:53 PM ZNVMbwmsx335.6 cm (5' 6 )05/30/2019 1:53 PM ESTBody Mass Index22.76005/30/2019 1:53 PM EST Plan of Treatment Health MaintenanceDue DateLast DoneCommentsAnxiety Wqiaurowb17/01/1996Depression Rkbhdsssi47/01/1996Hepatitis B Vaccine (1 of 3 - 19+ 3-dose series)1996 Cervical Cancer Eseuljvxi15/01/1999DTaP,Tdap,Td Vaccine (2 - Td or Tdap) CT Kpsuxyfwzbkb80/01/2023Cologuard (FIT-DNA)2022 Jmqaudkljvh12Colorectal Cancer Moxhponzt27/01/2023Fecal Occult Blood05/11/20225991Wgxofjzamjutu30/01/2023ovid-19 Vaccine ( season) 2024Influenza Vaccine (#1)Mammogram Screening , 01/08/2024, 12/22/2023, Additional history existsDiabetes Kqdoehuva91/06/2022, 09/21/2021Lipid Yzjvuqyqw63, 09/21/2021HIV EfboihbytSksaicdon58/20/2020Hepatitis C ScreeningCompleted 05/30/2019 Procedures Procedure NamePriorityDate/TimeAssociated DiagnosisCommentsCOLONOSCOPY - BKGDBKFUAKBibqdbt92/13/2020 2:04 PM EDT Enterocolitis due to Clostridium difficile HIV 1&2 ANTIGEN/IWTCNZBYAhqzadt05/20/2020 4:02 PM EST Enterocolitis due to Clostridium difficile *HEP C AEYmablyv28/20/2020 4:02 PM EST Enterocolitis due to Clostridium difficile from Last 3 Months or Most Recently Relevant to Health Maintenance Results * COLONOSCOPY - DIAGNOSTIC (06/21/2019 2:04 PM EDT)ComponentValueRef RangeTest MethodAnalysis TimePerformed AtPathologist GksoubvzfDfdfitqhbssnqS51 Gastrointestinal Endoscopy Patient Name: Jana Scruggs Procedure Date: 06/21/2019 2:04 PM Date of : 1975 Admit Type: Outpatient Age: 44 Room: A31 Procedure 3 (A3-125) Gender: Female Note Status: Finalized Attending MD: Crispin Sousa MD Sedation Initiated: 2:29 PM Procedure: ?Colonoscopy Indications: ?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 Refer to note in ?patient chart for documentation of history and ?physical. Last Colonoscopy: none. The patient's ?first colonoscopy is today. Referring Physician: Medicines: ?Midazolam 3 mg IV, Fentanyl 75 micrograms IV Complications: ?No immediate complications. Requesting Provider: Procedure: ?Pre-Anesthesia Assessment: ?- Prior to the procedure, a History and Physical was ?performed, and patient medications and allergies ?were reviewed. The patient is competent. The risks ?and benefits of the procedure and the sedation ?options and risks were discussed with the patient. ?All questions were answered and informed consent was ?obtained. Patient identification and proposed ?procedure were verified by the physician and the ?nurse in the pre-procedure area in the procedure ?room in the endoscopy suite. Mental Status ?Examination: alert and oriented. Airway Examination: ?normal oropharyngeal airway and neck mobility. ?Respiratory Examination: clear to auscultation. CV ?Examination: normal. Prophylactic Antibiotics: The ?patient does not require prophylactic antibiotics. ?Prior Anticoagulants: The patient has taken no ?previous anticoagulant or antiplatelet agents. ASA ?Grade Assessment: II - A patient with mild systemic ?disease. After reviewing the risks and benefits, the ?patient was deemed in satisfactory condition to ?undergo the procedure. The anesthesia plan was to ?use moderate sedation / analgesia (conscious ?sedation). Immediately prior to administration of ?medications, the patient was re-assessed for ?adequacy to receive sedatives. The heart rate, ?respiratory rate, oxygen saturations, blood ?pressure, adequacy of pulmonary ventilation, and ?response to care were monitored throughout the ?procedure. The physical status of the patient was ?re-assessed after the procedure. ?After I obtained informed consent, the scope was ?passed under direct vision. Throughout the ?procedure, the patient's blood pressure, pulse, and ?oxygen saturations were monitored continuously. The ?Colonoscope was introduced through the anus and ?advanced to the cecum, identified by appendiceal ?orifice and ileocecal valve. The colonoscopy was ?performed without difficulty. The patient tolerated ?the procedure well. The quality of the bowel ?preparation was good. The ileocecal valve, ?appendiceal orifice, and rectum were photographed. Moderate Sedation: Findings: ? The perianal and digital rectal examinations were normal. ? The colon (entire examined portion) appeared normal. ? The decision was made to proceed with fecal microbiota transplant ? (bacteriotherapy). Donor stool was supplied by an individual donor ? (fresh) and prepared using water as per protocol. Approximately 450 ? mL of the donor stool was instilled in the ascending colon and in the ? cecum. A detailed colonoscopic exam could not be performed upon scope ? withdrawal secondary to limited visibility from the instilled stool. Impression: ? - The entire examined colon is normal. ?- Fecal Microbiota Transplant (Bacteriotherapy) ?performed in the ascending colon and in the cecum. ?- No specimens collected. Estimated Blood Loss: Estimated blood loss: none. Recommendation: ? - Discharge patient to home. ?- Patient has a contact number available for ?emergencies. The signs and symptoms of potential ?delayed complications were discussed with the ?patient. Return to normal activities tomorrow. ?Written discharge instructions were provided to the ?patient. ?- Resume previous diet. ?- Continue present medications. ?- Repeat colonoscopy (date not yet determined) for ?screening purposes at the appropriate age ?recommendation or earlier if any new indications ?arise. Attending Participation: ? I personally performed the entire procedure. Scope In: 2:31:47 PM Scope Out: 2:42:18 PM MD Crispin Marie MD 06/21/2019 2:47:34 PM This report has been signed electronically by Crispin Sousa MD Number of Addenda: 0 Note Initiated On: 06/21/2019 2:04 PMDIGESTIVE DISEASE INSTITUTEAnatomical Region LateralityModalityOtherSpecimen (Source)Anatomical Location / Laterality Collection Method / VolumeCollection TimeReceived Time06/21/2019 2:04 PM EDT Narrative Authorizing ProviderResult TypeResult StatusCrispin Sousa MDDIGESTIVE DISEASE Final Result * HIV 1 2 COMBO(AG/AB),WITH REFLEX TO DIFFERENTIATION (05/30/2019 4:02 PM EST) ComponentValueRef RangeTest MethodAnalysis TimePerformed AtPathologist SignatureHIV 12 Combo (Ag/Ab)Non ReactiveNon Edkajkgi11/20/2020 9:34 PM EST [facility]HIV [facility]/2 Ab ConfirmatoryTest Not Indicated 05/30/2019 9:34 PM ESTGrand Lake Joint [facility] District [facility] HospitalHIV InterpretationNegative 05/30/2019 9:34 PM [facility]Comment: No evidence of HIV-1 or HIV-2 infection. Should recent infection be suspected, repeat testing may be considered 2-3 weeks after this draw. HIV Information: [place] Rev. Code 3701.243(E): This information has been disclosed to you from confidential records protected from disclosure by state law. ??You shall make no further disclosure of this information without the specific, written, and informed release of the individual to whom it pertains or as otherwise permitted by state law. A general authorization for the release of medical or other information is not sufficient for the purpose of the release of HIV test results or diagnoses. Specimen (Source)Anatomical Location / LateralityCollection Method / Volume Collection TimeReceived TimeBlood specimen (specimen)BLOOD SPECIMEN / Unknown 05/30/2019 4:02 PM EST05/30/2019 4:04 PM EST Narrative Authorizing ProviderResult TypeResult StatusBret A Merry ENRIQUEZLABORATORYFinal ResultPerforming OrganizationAddressCity/State/[facility] CodePhone Number [facility] [address] [place] [address] [facility] [address] [place] [address] * (ABNORMAL) HEP REMOTE PANEL BL (05/30/2019 4:02 PM EST)ComponentValueRef Range Test MethodAnalysis TimePerformed AtPathologist SignatureHep B Core Ab, Total GxvovlqwHwefixet22/20/2020 7:20 PM [facility] HospitalHep C Antibody TYVrhpkiadCfnfhamg87/20/2020 7:21 PM ESTGrand [facility] JSnOeBfihrqrmFnhpcnej70/20/2020 7:21 PM [facility] HospitalHep B Surface Ab, QualPositive(A)Npgpmyfe88/20/2020 7:21 PM ESTMer[facility] LaboratoriesComment: These results are consistent with previous exposure and/or immunity to the hepatitis B virus antigen. Specimen (Source)Anatomical Location / LateralityCollection Method / Volume Collection TimeReceived TimeBlood specimen (specimen)BLOOD SPECIMEN / Unknown 05/30/2019 4:02 PM EST05/30/2019 4:04 PM EST Narrative Authorizing ProviderResult TypeResult StatusBret Eleanor Sousa MDLABORATORYFinal ResultPerforming OrganizationAddressCity/State/ZIP CodePhone Number [facility] [address] [place] [address] [facility] [address] [place] [address] from Last 3 Months or Most Recently Relevant to Health Maintenance Insurance Care Teams Team MemberRelationshipSpecialtyStart DateEnd Date Minal Torres MD [address] [place] [address] PCP - GeneralFamily Medicine04/13/19 Hussein Atwood MD [address] [place] [id number] ReferringGastroenterology05/09/19
--- OUTSIDE RECORDS SUMMARY | 2025-03-12 21:48 | XMS_ITS | Encounter Summary ---
Author Organization [facility] Address [address] [place] [address] Care Team Providers Care Main Line Station Engineer Name Role Phone Dieudonne Foster MD Primary Care Provider [phone] Gabi Mosquera Unavailable [phone] Encounter Details DateTypeDepartmentCare Team (Latest Contact Info)Bcnzqdvvvot32/19/2025Abstract [facility] [place] [facility] [address] [place] [address] [place] [address] Dieudonne Foster MD [address] [facility] [address] [place], [place] [id number] Social History Tobacco UseTypesPacks/DayYears UsedDateSmoking Tobacco: FormerCigarettes [...] relatives?Twice a week12/21/2023How often do you attend adventist or episcopal services?Patient /12/2024Do you belong to any clubs or organizations such as adventist groups, unions, fraternal or athletic groups, or school groups?Patient gbevcxrk13/12/2024How often do you attend meetings of the clubs or organizations you belong to?Patient tllfzyej92/12/2024re you , , , , never , or living with a partner?Rinuhdol72/12/2024UDIT-CAnswerDate RecordedQ1: How often do you have a [...] hard at all12/21/2023HQ-2AnswerDate Recorded Patient Health Questionnaire-2 Gwxwm23604/23/2024[facility] [place] [facility] Occupational Health - Occupational Stress QuestionnaireAnswerDate [...] were you homeless or living in a detention (including now)?No12/21/2023 CommentsUnknownSex and Gender InformationValueDate RecordedSex Assigned at BirthNot on fileLegal FipWmnxsd11/15/2023 6:49 PM EDTGender IdentityNot on fileSexual OrientationNot on filedocumented as of this encounter Plan of Treatment DateTypeDepartmentCare Team (Latest Contact Info)Fpxrjnuqvco15/15/2026 8:30 AM EDTOffice Visit [facility] [place] [facility] [address] [facility] [address] [place] [address] Gabi Mosquera PA [address] [facility] [address] [place] [address] documented as of this encounter Visit Diagnoses Not on filedocumented in this encounter Care Teams Team MemberRelationshipSpecialtyStart DateEnd Date Dieudonne Foster MD [address] [facility] [address] [place] [address] PCP - GeneralInternal Lwivqdcd39/4/24 Gabi Mosquera PA [address] [place] [address] [place] [address] PCP - Medical [place] [employer]09/09/2511documented as of this encounter
[2025-03-12] MEDS: ONDANSETRON 4 MG RAPDIS TABLET SL (23:25)
[2025-03-12 23:26] VITALS: BP 138/82; PULSE 78; O2SAT 99
== END 2025-03-12 23:28 | disposition home or self-care (01) ==
PROVIDERS: Emergency Provider Emergency Medicine; PCP Physician Assistant
DX: N39.0 Urinary tract infection, site not specified (principal)
CPT/HCPCS: 36415; 74176; 80053; 81001; 84703; 85025; 87086; 96361; 96365; 96375; 99285; J0696; J1885; J2405; Q0162